=== PATIENT | female | born 1965 | race Caucasian/White ===

== ENCOUNTER 2020-11-01 19:29 | Inpatient (IN) | payer SELFPAY ==
[~2020-11-01] VITALS: Ht 170.2 cm; Wt 72.6 kg
[2020-11-01 19:45] LABS: BASOPHILS % (AUTO) 2.5 % (0.0-2.0); EOSINOPHILS % (AUTO) 1.4 % (0.0-3.0); HEMATOCRIT 47.3 % (37.0-47.0); HEMOGLOBIN 14.6 G/DL (12.0-16.0); LYMPHOCYTES % (AUTO) 10.2 % (20.0-45.0); MEAN CORPUSCULAR VOLUME 89 FL (80-99); MONOCYTES % (AUTO) 9.8 % (1.0-10.0); NEUTROPHILS % (AUTO) 76.1 % (45.0-75.0); PLATELET COUNT 337 K/UL (150-450); RED BLOOD COUNT 5.34 M/UL (4.20-5.40); WHITE BLOOD COUNT 7.7 K/UL (4.8-10.8)
--- NOTE | 2020-11-01 19:45 | NUR ---
ED Nurse Note: Pt brought in by EMS. Pt reports she ate something yesterday, and it got lodged in her esophagus. Pt reports vomiting since this happened and complains of epigastric pain. Pt is able to swallow without difficulty. Pt AAO x4.
[2020-11-01 19:50] LABS: INR 1.2 (0.9-1.1)
[2020-11-01 19:51] LABS: ANION GAP 16 mmol/L (5-15); BLOOD UREA NITROGEN 22 mg/dL (7-18); CALCIUM 9.4 MG/DL (8.5-10.1); CARBON DIOXIDE 20 MMOL/L (21-32); CHLORIDE 107 MMOL/L (98-107); CREATININE 0.5 MG/DL (0.55-1.30); POTASSIUM 4.1 MMOL/L (3.5-5.1); SODIUM 143 MMOL/L (136-145)
[2020-11-01 19:55] LABS: ALANINE AMINOTRANSFERASE 55 U/L (12-78); ALBUMIN 3.9 G/DL (3.4-5.0); ALBUMIN/GLOBULIN RATIO 0.9 (1.0-2.7); ALKALINE PHOSPHATASE 140 U/L (46-116); ASPARTATE AMINO TRANSFERASE 42 U/L (15-37); BILIRUBIN,TOTAL 0.9 MG/DL (0.2-1.0)
--- NOTE | 2020-11-01 20:03 | Emergency Room Report ---
History of Present Illness General Chief Complaint: Abdominal Pain Source: Patient Present Illness HPI 55-year-old female with history of hypothyroidism currently not taking any medication brought in by paramedics due to multiple bouts of emesis that she reports has been happening for the past 23 hours. Reports that started after eating chicken. Patient is actively vomiting. Complains of epigastric pain. Denies any cough or congestion, shortness of breath. Complains of palpitation. Appears to be tachycardic upon arrival. Also complains of nonbloody diarrhea that started around the same time as her nonbloody emesis. Denies headache and dizziness. Denies urinary symptoms. Denies tobacco smoke, drug use, alcohol intake. Allergies: Coded Allergies: No Known Allergies (Unverified , 11/01/20) COVID-19 Screening Contact w/high risk pt: No Experienced COVID-19 symptoms?: No COVID-19 Testing performed MODEL MAKER APPRENTICE: No Patient History Past Medical History: see triage record Past Surgical History: none Pertinent Family History: none Now: No Immunizations: UTD Reviewed Nursing Documentation: PMH: Agreed; PSxH: Agreed Review of Systems All Other Systems: negative except mentioned in HPI Physical Exam Vital Signs Date Time Temp Pulse Resp B/P (MAP) Pulse Ox O2 Delivery O2 Flow Rate FiO2 11/01/20 19:14 98.4 121 20 143/83 (103) 98 Room Air Sp02 EP Interpretation: reviewed, abnormal - tachycardic General Appearance: mild distress Head: normocephalic, atraumatic Eyes: bilateral eye normal inspection, bilateral eye PERRL ENT: hearing grossly normal, normal pharynx, no angioedema, normal voice Neck: no meningismus, no bony tend Respiratory: chest non-tender, normal breath sounds, no rhonchi, no respiratory distress, no retraction, no accessory muscle use Cardiovascular #1: regular rate, rhythm, no edema Cardiovascular #2: 2+ carotid (R), 2+ carotid (L), 2+ radial (R), 2+ radial (L), 2+ dorsalis pedis (R), 2+ dorsalis pedis (L) Gastrointestinal: soft, no organomegaly, no peritonitis, no bruit, non- distended Genitourinary: no CVA tenderness Musculoskeletal: back normal Neurologic: alert, motor strength/tone normal, oriented x3, sensory intact, responsive, speech normal Psychiatric: judgement/insight normal, memory normal, mood/affect normal, no suicidal/homicidal ideation Skin: no rash Lymphatic: no adenopathy Medical Decision Making PA Attestation All my diagnosis and treatment plans were reviewed ad discussed with my supervising physician Dr. Chino Diagnostic Impression: Primary Impression: MEGHAN (acute kidney injury) Additional Impressions: Nausea & vomiting Dehydration Low TSH level ER Course 55-year-old female with history of hypothyroidism currently not taking any medication brought in by paramedics due to multiple bouts of emesis that she reports has been happening for the past 23 hours. Reports that started after eating chicken. Patient is actively vomiting. Complains of epigastric pain. Denies any cough or congestion, shortness of breath. Complains of palpitation. Appears to be tachycardic upon arrival. Also complains of nonbloody diarrhea that started around the same time as her nonbloody emesis. Denies headache and dizziness. Denies urinary symptoms. Denies tobacco smoke, drug use, alcohol intake. Ddx considered but are not limited to: appendicitis, cholecystis, gastritis, gastroenteritis, UTI, pyelonephritis, SBO, diverticulitis, thyroid storm, thyrotoxicosis Vital signs: are WNL, pt. is afebrile H&PE are most consistent with: Dehydration, nausea vomiting, MEGHAN At this time patient denies any diffuse abdominal pain reports that she only has pain she has to vomit she feels is epigastric with radiation to chest. Therefore I do not believe the patient needs any abdominal imaging at this time patient was also nonrigid abdomen. Denies any abdominal surgeries in the past ORDERS: Abdominal pain order set, TSH ED INTERVENTIONS: NS bolus, Pepcid, Zofran, Phenergan Patient reports that she has not taken anything for hypothyroidism in over 3 years she only takes 3 tablets of the medication as she cannot recall what it was 12 years ago and reports that it is constant . patient has not been seen by cocoa bean roaster in the [id number]. Patient was admitted with diagnosis of hyperemesis, hypothyroidism to under supervision of Dr.: Chino pt stable at time of admission EKG Diagnostic Results Rate: tachycardiac Rhythm: other - Slightly tachycardic Other Impression No acute ST changes ASA given to the pt in ED: No Chest X-Ray Diagnostic Results Chest X-Ray Diagnostic Results : Chest X-Ray Ordered: Yes # of Views/Limited/Complete: 1 View Indication: Other EP Interpretation: Yes PA Xray: Interpretation reviewed, by supervising MD, and agrees with findings. Interpretation: no consolidation, no effusion, no pneumothorax Impression: No acute disease Electronically Signed by: Kumar Inman PA-C Last Vital Signs Date Time Temp Pulse Resp B/P (MAP) Pulse Ox O2 Delivery O2 Flow Rate FiO2 11/01/20 19:14 98.4 121 20 143/83 (103) 98 Room Air Condition: Serious Referrals: NOT CHOSEN IPA/,REFERRING (PCP) Additional Instructions: Kumar Harper Nov 01, 2020 20:03
--- NOTE | 2020-11-01 20:25 | NUR ---
ED Nurse Note: Pt reports she is still nauseated and reports she vomited after receiving PO pepcid. Advised provider, new orders pending.
[2020-11-01 20:55] VITALS: BP 143/83
--- NOTE | 2020-11-01 21:18 | NUR ---
ED Nurse Note: Pt requesting something for pain. Provider aware.
[2020-11-01] MEDS ORDERED: Morphine Sulfate 4mg/ml Inj (IV USE ONLY) IVP ONE (21:30)
[2020-11-01 21:46] VITALS: BP 115/47
[2020-11-01] MEDS ORDERED: Propranolol 10mg tab ORAL ONE (22:00)
[2020-11-01] MEDS ORDERED: Propranolol 1mg/ml Inj IVP ONE (22:00)
--- NOTE | 2020-11-01 22:19 | NUR ---
TRANSFER TO FLOOR: Patient transferred to as ordered, per Meredith. Report given to JANE Green. Belongings sent to floor with pt, belongings inventory completed and signed.
[2020-11-01 22:21] LABS: APPEARANCE,URINE CLEAR; BILIRUBIN, URINE NEGATIVE (NEGATIVE); GLUCOSE, URINE (UA) NEGATIVE (NEGATIVE); KETONES,URINE 4+ (NEGATIVE); LEUKOCYTE ESTERASE ,URINE 1+ (NEGATIVE); NITRITE,URINE NEGATIVE (NEGATIVE); PH,URINE 5 (4.5-8.0); PROTEIN,URINE 1+ (NEGATIVE); UROBILINOGEN,URINE NORMAL MG/DL (0.0-1.0)
[2020-11-01 22:23] LABS: COLOR,URINE YELLOW
--- NOTE | 2020-11-01 23:26 | NUR ---
NURSE NOTES: Received patient report from KRYSTLE Olivares RN. Patient is AO x4 awake and able to make needs known. Patient still presents with nausea and complains of pain in abdomen 05/10. Patient connected to tele box. Patient on room air and shows no signs of respiratory distress at the time. IV is intact and patent. There are no signs of erythema, infiltration, or bleeding. Belongings list reviewed and signed by me. Vitals are within range. Patient is ambulatory with steady gait. Dr. Chawla called for admission orders, awaiting call back. Bed is in the lowest position, call light is within reach, side rails up x3. Will continue to monitor.
[2020-11-02] VITALS: BP 122/72
[2020-11-02] MEDS ORDERED: Acetaminophen 500mg (ES) tab ORAL PRN
--- NOTE | 2020-11-02 00:10 | NUR ---
NURSE NOTES: Dr. Chawla gave orders. Said he would not give patient Morphine for pain at the time until we know more about what is causing abdominal pain.
[2020-11-02 04:00] VITALS: BP 123/61
[2020-11-02 07:22] LABS: BASOPHILS % (AUTO) 1.8 % (0.0-2.0); EOSINOPHILS % (AUTO) 4.6 % (0.0-3.0); HEMATOCRIT 38.6 % (37.0-47.0); HEMOGLOBIN 12.1 G/DL (12.0-16.0); LYMPHOCYTES % (AUTO) 21.9 % (20.0-45.0); MEAN CORPUSCULAR VOLUME 91 FL (80-99); MONOCYTES % (AUTO) 13.8 % (1.0-10.0); NEUTROPHILS % (AUTO) 57.9 % (45.0-75.0); PLATELET COUNT 285 K/UL (150-450); RED BLOOD COUNT 4.25 M/UL (4.20-5.40); RED CELL DISTRIBUTION WIDTH 13.3 % (11.6-14.8); WHITE BLOOD COUNT 6.6 K/UL (4.8-10.8)
--- NOTE | 2020-11-02 07:33 | NUR ---
NURSE HAND-OFF REPORT: Important Events on Shift:[Admission] Patient Status: [Full code] Diet: [NPO] Pending Orders: [] Pending Results/Labs:[] Pending MD notification:[] Latest Vital Signs: Temperature 98.2 , Pulse 80 , B/P 123 /61 , Respiratory Rate 18 , O2 SAT 97 , Room Air, O2 Flow Rate . Vital Sign Comment: [] EKG Rhythm: Sinus Rhythm Rhythm change?: N MD Notified?: - MD Response: Latest Kaplan Fall Score: 35 Fall Risk: Medium Risk Safety Measures: Call light Within Reach, Bed Alarm Zone 2, Side Rails Side Rails x2, Bed position Low and Locked. Fall Precautions: Yellow Socks Yellow Gown Patient Fall Education Report given to [Tarah, RN].
--- NOTE | 2020-11-02 07:42 | NUR ---
NURSE NOTES: Received patient in bed awake. No SOB or acute distress. IV lines intact and patent. Maintained on NPO. HOB elevated. Bed locked in low position. Call light within reach. Will continue plan of care.
[2020-11-02 08:00] VITALS: BP 128/62
--- NOTE | 2020-11-02 08:00 | NUR ---
CASE MANAGEMENT:REVIEW 55 YR OLD FEMALE BIBA CC: NAUSEA AND VOMITING BILE. EPIGASTRIC PAIN PMH: THYROID SI: N/V. HYPERTHYROIDISM. MEGHAN. DEHYDRATION 98.5 121 20 143/83 98% ON RA BUN+22 TSH<0.010 IS: IV ZOFRAN IV PEPCID X2 1L NS BOLUS X3 IV PROMETHAZINE IV MORPHINE CXR NPO : TO TELEMETRY
[2020-11-02 08:12] LABS: ANION GAP 15 mmol/L (5-15); BLOOD UREA NITROGEN 17 mg/dL (7-18); CALCIUM 8.8 MG/DL (8.5-10.1); CARBON DIOXIDE 20 MMOL/L (21-32); CHLORIDE 112 MMOL/L (98-107); CREATININE 0.5 MG/DL (0.55-1.30); SODIUM 147 MMOL/L (136-145)
[2020-11-02] MEDS: methIMAzole 10mg tab ORAL SCH ×2 (08:35→17:36)
[2020-11-02 11:50] VITALS: BP 113/54
[2020-11-02] MEDS: Propranolol 10mg tab ORAL SCH ×2 (13:09→21:49)
[2020-11-02 15:34] VITALS: BP 114/56
[2020-11-02] MEDS ORDERED: Barium EZ HD MC PRN (16:30)
[2020-11-02] MEDS ORDERED: Barium EZ Gas II granules MC PRN (16:30)
[2020-11-02] MEDS ORDERED: Varibar Thin Liquid powder 148gm MC PRN (16:30)
--- NOTE | 2020-11-02 16:57 | NUR ---
NURSE NOTES: Dr Chawla informed of episode of paroxysmal SVT at 152 bpm, left message, awaiting response. Patient asymptomatic, on the phone talking and laughing, no complaints. HR went down to 96. Addendum: 11/02/20 at 1843 by Tarah Hermosillo RN NURSE NOTES: Paroxysmal SVT relayed to Dr Hodges, no new orders.
[2020-11-02] MEDS: Pantoprazole Inj IVP SCH (17:36)
[2020-11-02] MEDS: Metoclopramide 10mg/2ml Inj IVP PRN (17:36)
--- NOTE | 2020-11-02 18:06 | Diagnostic Imaging Report ---
Indication: Chest pain Technique: One view of the chest Comparison: none Findings: Lungs and pleural spaces are clear. Heart size is normal. Impression: No acute process
--- NOTE | 2020-11-02 19:15 | NUR ---
NURSE NOTES: Receive a report from JANE Rascon. Round is made. Pt is asleep but easily aroused. Awake and alert. No nausea/vomiting noted. On NPO. Will have esophagogram tomorrow. No dizziness noted. Call light within reach. Will continue to monitor.
--- NOTE | 2020-11-02 19:53 | NUR ---
NURSE HAND-OFF REPORT: Important Events on Shift: with nausea and vomiting. With an episode of paroxysmal SVT, Dr Hodges aware, no new orders. Patient Status: alert Diet: npo except meds and ice chips Pending Orders: xray of the esophagus Pending Results/Labs: Pending MD notification: Latest Vital Signs: Temperature 97.9 , Pulse 88 , B/P 114 /56 , Respiratory Rate 18 , O2 SAT 98 , Room Air, O2 Flow Rate . Vital Sign Comment: EKG Rhythm: Sinus Rhythm Rhythm change?: N MD Notified?: - MD Response: Latest Kaplan Fall Score: 35 Fall Risk: Medium Risk Safety Measures: Call light Within Reach, Bed Alarm Zone 2, Side Rails Side Rails x2, Bed position Low and Locked. Fall Precautions: Yellow Socks Report given to Go RN
[2020-11-02 20:00] VITALS: BP 127/56
--- NOTE | 2020-11-02 20:15 | NUR ---
NURSE NOTES: Pt requests medication for epigastric soreness. Spoke to Dr. Cardoso but will be held until test tomorrow. Pt made aware,
--- NOTE | 2020-11-02 23:05 | General Progress Note ---
Subjective Allergies: Coded Allergies: No Known Allergies (Unverified , 11/01/20) Objective Last 24 Hour Vital Signs Date Time Temp Pulse Resp B/P (MAP) Pulse Ox O2 Delivery O2 Flow Rate FiO2 11/02/20 21:49 92 127/56 11/02/20 21:00 Room Air 11/02/20 20:00 98.1 89 18 127/56 (79) 98 11/02/20 20:00 89 11/02/20 16:00 88 11/02/20 15:34 97.9 89 18 114/56 (75) 98 11/02/20 13:09 87 113/54 11/02/20 12:00 94 11/02/20 11:50 98.2 87 18 113/54 (73) 98 11/02/20 09:00 Room Air 11/02/20 08:00 97.7 91 18 128/62 (84) 98 11/02/20 08:00 93 11/02/20 04:00 90 11/02/20 04:00 98.2 80 18 123/61 (81) 97 11/02/20 00:49 Room Air 11/02/20 00:00 101 11/02/20 00:00 98.4 90 18 122/72 (89) 98 Intake and Output 11/01/20 11/02/20 19:00 07:00 # Voids 2 Laboratory Tests 11/02/20 06:34: White Blood Count 6.6, Red Blood Count 4.25, Hemoglobin 12.1, Hematocrit 38.6, Mean Corpuscular Volume 91, Mean Corpuscular Hemoglobin 28.5, Mean Corpuscular Hemoglobin Concent 31.4L, Red Cell Distribution Width 13.3, Platelet Count 285, Mean Platelet Volume 6.9, Neutrophils (%) (Auto) 57.9, Lymphocytes (%) (Auto) 21.9, Monocytes (%) (Auto) 13.8H, Eosinophils (%) (Auto) 4.6H, Basophils (%) (Auto) 1.8, Sodium Level 147H, Potassium Level 4.0, Chloride Level 112H, Carbon Dioxide Level 20L, Anion Gap 15, Blood Urea Nitrogen 17, Creatinine 0.5L, Estimat Glomerular Filtration Rate > 60, Glucose Level 78, Calcium Level 8.8, T hyroid Stimulating Hormone (TSH) < 0.010L 11/02/20 16:10: Urine Opiates Screen Negative, Urine Barbiturates Screen Negative, Phencyclidine (PCP) Screen Negative, Urine Amphetamines Screen Negative, Urine Benzodiazepines Screen Negative, Urine Cocaine Screen Negative, Urine Marijuana (THC) Screen Negative Height (Feet): 5 Height (Inches): 7.00 Weight (Pounds): 160 Assessment/Plan Assessment/Plan: Assessment - Dysphagia - N/V - hyperthyroid disorder Recommendations - Barium swallow / xray - PPI Thank you Rena Nguyen MD Nov 02, 2020 23:05
--- NOTE | 2020-11-02 23:44 | History and Physical Report ---
DATE OF ADMISSION: 11/01/2020 The patient has a history of hypothyroidism, currently not taking medication. The patient says that the medications made her feel sick, so she stopped taking the thyroid medications for approximately 2 years. The patient said that all of this started after eating chicken. The patient started having recurrent epigastric pain and vomiting. Denies shortness of breath. Denies nausea, vomiting, or diarrhea. Denies fever or chills. Denies cough. Denies headache. The patient says that she has been vomiting for 4 days nonstop. The patient also has heartburn. The patient is admitted for uncontrollable hyperemesis. Denies headache. PAST MEDICAL HISTORY: Has history of hypothyroidism, history of GERD. PAST SURGICAL HISTORY: , hysterectomy. FAMILY HISTORY: Noncontributory. MEDICATIONS: None. SOCIAL HISTORY: Denies history of alcohol abuse. Denies history of drug abuse. Does smoke. ALLERGIES: No known allergies. REVIEW OF SYSTEMS: HEENT: Denies headache. RESPIRATORY: Denies shortness of breath. Denies cough. CARDIOVASCULAR: Denies chest pain. GASTROINTESTINAL: Reports vomiting x4 days. Epigastric pain for 4 days. Nonblood watery stool. EXTREMITIES: Denies pain. CENTRAL NERVOUS SYSTEM: Denies change in speech pattern. Denies headache. PHYSICAL EXAMINATION: VITAL SIGNS: Temperature is 98.2, pulse 87, blood pressure is 113/64. HEENT: PERRLA. NECK: Supple. No lymphadenopathy. CHEST: Clear to auscultation. CARDIOVASCULAR: Regular rate and rhythm. No murmurs or extra sounds. GASTROINTESTINAL: Soft. Epigastric tenderness. No rebound. Abdomen soft. No organomegaly. EXTREMITIES: No edema. Moves all four extremities. Reflexes equal on both sides. LABORATORY DATA: WBC of 7.7, hemoglobin 14.6, platelets of 337. Sodium 143, potassium 4.1, BUN of 22, creatinine 0.5, glucose of 127, AST of 42, ALT 55, alk phos of 140. TSH is 0.01. ASSESSMENT/PLAN: Hypothyroidism, hyperemesis, abdominal pain, and one episode of SVT. Unable to keep food down. Admitted for possible dehydration. I have consulted Dr. Elam, Dr. Emmanuel, Dr. Spicer, Dr. Hodges to help with the management of the above-mentioned abnormalities and findings. Rain Chawla M.D. DR: JESUS ALBERTO JOB#: [id number] CC:
[2020-11-03] VITALS: BP 136/56
[2020-11-03] MEDS: Metoclopramide 10mg/2ml Inj IVP PRN (01:25)
--- NOTE | 2020-11-03 01:25 | NUR ---
NURSE NOTES: Pt is feeling epigastric soreness. On NPO at this time. Given prn medication-Reglan IVS. Will continue to monitor.
--- NOTE | 2020-11-03 02:24 | Cardiology Report ---
APPROVED REPORT EKG Measurement Heart [id number] <Conclusion> Sinus tachycardia Possible Left atrial enlargement Borderline ECG
[2020-11-03 04:00] VITALS: BP 129/60
[2020-11-03] MEDS: Propranolol 10mg tab ORAL SCH ×2 (06:00→15:01)
--- NOTE | 2020-11-03 06:37 | NUR ---
NURSE HAND-OFF REPORT: Important Events on Shift: No nausea/vomiting except epigastric soreness. Given Reglan IVS 1x. Planning on X-ray esophagus. Patient Status: [stable] Diet: [npo] Pending Orders: [] Pending Results/Labs:[] Pending MD notification:[] Latest Vital Signs: Temperature 97.9 , Pulse 85 , B/P 129 /60 , Respiratory Rate 18 , O2 SAT 98 , Room Air, O2 Flow Rate . Vital Sign Comment: [] EKG Rhythm: Sinus Rhythm Rhythm change?: N MD Notified?: - MD Response: Latest Kaplan Fall Score: 35 Fall Risk: Medium Risk Safety Measures: Call light Within Reach, Bed Alarm Zone 2, Side Rails Side Rails x2, Bed position Low and Locked. Fall Precautions: Door Sign Patient Fall Education
--- NOTE | 2020-11-03 07:20 | NUR ---
NURSE NOTES: Given report to JANE Morales. Round is made.
--- NOTE | 2020-11-03 07:25 | NUR ---
NURSE NOTES: Received report from Gho/RN, Observed patient asleep, Lying semi-retana's, Resting comfortably. On room air, No acute distress/SOB noted. IV on left wrist and right wrist patent and intact. D5W running at 50cc/hr. Bed in low position and locked, Call light within reach. Encouraged to use call light when needed. Will continue plan of care.
[2020-11-03 08:00] VITALS: BP 110/55
[2020-11-03] MEDS: Pantoprazole Inj IVP SCH (09:20)
[2020-11-03] MEDS: methIMAzole 10mg tab ORAL SCH (09:20)
[2020-11-03 10:18] LABS: BASOPHILS % (AUTO) 1.2 % (0.0-2.0); EOSINOPHILS % (AUTO) 2.3 % (0.0-3.0); HEMATOCRIT 41.6 % (37.0-47.0); LYMPHOCYTES % (AUTO) 13.4 % (20.0-45.0); MEAN CORPUSCULAR VOLUME 90 FL (80-99); MONOCYTES % (AUTO) 8.5 % (1.0-10.0); NEUTROPHILS % (AUTO) 74.5 % (45.0-75.0); PLATELET COUNT 316 K/UL (150-450); WHITE BLOOD COUNT 8.5 K/UL (4.8-10.8)
[2020-11-03 10:47] LABS: ALANINE AMINOTRANSFERASE 88 U/L (12-78); ALBUMIN 3.4 G/DL (3.4-5.0); ALBUMIN/GLOBULIN RATIO 0.8 (1.0-2.7); ALKALINE PHOSPHATASE 117 U/L (46-116); ANION GAP 11 mmol/L (5-15); ASPARTATE AMINO TRANSFERASE 72 U/L (15-37); BILIRUBIN,TOTAL 0.8 MG/DL (0.2-1.0); BLOOD UREA NITROGEN 13 mg/dL (7-18); CALCIUM 9.1 MG/DL (8.5-10.1); CARBON DIOXIDE 24 MMOL/L (21-32); CHLORIDE 106 MMOL/L (98-107); CHOLESTEROL 198 MG/DL (< 200); CREATININE 0.5 MG/DL (0.55-1.30); HDL CHOLESTEROL 57 MG/DL (40-60); PHOSPHORUS 3.9 MG/DL (2.5-4.9); POTASSIUM 3.6 MMOL/L (3.5-5.1); SODIUM 141 MMOL/L (136-145); TRIGLYCERIDES 126 MG/DL (30-150)
--- NOTE | 2020-11-03 10:59 | Consultation ---
DATE OF CONSULTATION: 11/02/2020 GASTROENTEROLOGY CONSULTATION CONSULTING PHYSICIAN: Rena Spicer MD CHIEF COMPLAINT: I was asked to see this patient by Dr. Oh for evaluation of swallowing difficulty. HISTORY OF PRESENT ILLNESS: Patient is a 55-year-old woman, who comes with a 2 to 3-day history of difficulty swallowing. Patient stated same thing happened to her about 3 years ago and it resolved. Since then, she had no esophageal symptoms, although she does admit that she has been chewing her food very carefully as well as makes sure the food passes. Patient denies any reflux symptoms, but over the last 2 days she has had vomiting episodes. The patient describes sensation of dysphagia chest level. She has not lost any weight. She has not had any endoscopy or colonoscopy. PAST MEDICAL HISTORY: History of hyperthyroid disorder. The patient is on Tapazole. FAMILY HISTORY: Positive for bladder cancer in mother. SOCIAL HISTORY: Patient smokes cigarettes, but she stopped this 3 months ago. She does not drink alcohol. She is and she has children. PAST SURGICAL HISTORY: Status post x2, status post hysterectomy. REVIEW OF SYSTEMS: Otherwise negative. PHYSICAL EXAMINATION: GENERAL: A thin woman, seen in her room, in no distress. HEENT: Normocephalic and atraumatic. Sclerae anicteric. Oropharynx clear. NECK: Supple. CHEST: Clear to auscultation. CARDIOVASCULAR: Revealed a regular rate. ABDOMEN: Soft. EXTREMITIES: Revealed no edema. LABORATORY DATA: Noted. ASSESSMENT: This patient presents with 2 to 3-day history of severe nausea and vomiting, which is somewhat acute. The patient had a similar episode in about 3 years ago. In between these attacks, she has been chewing very carefully. I suspect that she has somewhat esophageal ring that has been causing the obstruction due to occlusion of food. The patient will have an esophagram to evaluate the . Endoscopy can be done thereafter to repair any target the anomaly. RECOMMENDATIONS: Per above discussion and per orders written in the chart. Thank you for asking me to participate in the care of this patient. Rena Spicer M.D. DR: AUGUSTUS JOB#: [id number] CC:
[2020-11-03 12:00] VITALS: BP 131/53
--- NOTE | 2020-11-03 12:35 | NUR ---
NURSE NOTES: Patient refused Esophagus x-ray, Notified Dr. Spicer. also received order for diet and carried out.
--- NOTE | 2020-11-03 14:04 | Cardiac Electrophysiology PN ---
Subjective Subjective [id number] Objective Last 24 Hour Vital Signs Date Time Temp Pulse Resp B/P (MAP) Pulse Ox O2 Delivery O2 Flow Rate FiO2 11/03/20 12:00 98.1 84 20 131/53 (79) 98 11/03/20 09:00 Room Air 11/03/20 08:00 98.1 87 20 110/55 (73) 96 11/03/20 08:00 88 11/03/20 04:00 88 11/03/20 04:00 97.9 85 18 129/60 (83) 98 11/03/20 00:00 97.9 83 18 136/56 (82) 98 11/03/20 00:00 83 11/02/20 21:49 92 127/56 11/02/20 21:00 Room Air 11/02/20 20:00 98.1 89 18 127/56 (79) 98 11/02/20 20:00 89 11/02/20 16:00 88 11/02/20 15:34 97.9 89 18 114/56 (75) 98 Intake and Output 11/02/20 11/03/20 19:00 07:00 Intake Total 850 ml Output Total 2340 ml Balance -1490 ml Intake IV Total 550 ml Other 300 ml Output Other 2340 ml # Voids 2 # Bowel Movements 1 Laboratory Tests Test 11/02/20 16:10 11/03/20 09:39 Urine Opiates Screen Negative (NEGATIVE) Urine Barbiturates Screen Negative (NEGATIVE) Phencyclidine (PCP) Screen Negative (NEGATIVE) Urine Amphetamines Screen Negative (NEGATIVE) Urine Benzodiazepines Screen Negative (NEGATIVE) Urine Cocaine Screen Negative (NEGATIVE) Urine Marijuana (THC) Screen Negative (NEGATIVE) White Blood Count 8.5 K/UL (4.8-10.8) Red Blood Count 4.60 M/UL (4.20-5.40) Hemoglobin 13.0 G/DL (12.0-16.0) Hematocrit 41.6 % (37.0-47.0) Mean Corpuscular Volume 90 FL (80-99) Mean Corpuscular Hemoglobin 28.3 PG (27.0-31.0) Mean Corpuscular Hemoglobin Concent 31.3 G/DL (32.0-36.0) L Red Cell Distribution Width 13.0 % (11.6-14.8) Platelet Count 316 K/UL (150-450) Mean Platelet Volume 7.2 FL (6.5-10.1) Neutrophils (%) (Auto) 74.5 % (45.0-75.0) Lymphocytes (%) (Auto) 13.4 % (20.0-45.0) L Monocytes (%) (Auto) 8.5 % (1.0-10.0) Eosinophils (%) (Auto) 2.3 % (0.0-3.0) Basophils (%) (Auto) 1.2 % (0.0-2.0) Sodium Level 141 MMOL/L (136-145) Potassium Level 3.6 MMOL/L (3.5-5.1) Chloride Level 106 MMOL/L (98-107) Carbon Dioxide Level 24 MMOL/L (21-32) Anion Gap 11 mmol/L (5-15) Blood Urea Nitrogen 13 mg/dL (7-18) Creatinine 0.5 MG/DL (0.55-1.30) L Estimat Glomerular Filtration Rate > 60 mL/min (>60) Glucose Level 151 MG/DL (74-106) H Uric Acid 7.3 MG/DL (2.6-7.2) H Calcium Level 9.1 MG/DL (8.5-10.1) Phosphorus Level 3.9 MG/DL (2.5-4.9) Magnesium Level 1.7 MG/DL (1.8-2.4) L Total Bilirubin 0.8 MG/DL (0.2-1.0) Aspartate Amino Transf (AST/SGOT) 72 U/L (15-37) H Alanine Aminotransferase (ALT/SGPT) 88 U/L (12-78) H Alkaline Phosphatase 117 U/L (46-116) H Total Protein 7.6 G/DL (6.4-8.2) Albumin 3.4 G/DL (3.4-5.0) Globulin 4.2 g/dL Albumin/Globulin Ratio 0.8 (1.0-2.7) L Triglycerides Level 126 MG/DL (30-150) Cholesterol Level 198 MG/DL (< 200) LDL Cholesterol 115 mg/dL (<100) H HDL Cholesterol 57 MG/DL (40-60) Cholesterol/HDL Ratio 3.5 (3.3-4.4) Thyroid Stimulating Hormone (TSH) < 0.010 uiU/mL (0.358-3.740) Maxim Hodges MD Nov 03, 2020 14:04
--- NOTE | 2020-11-03 14:26 | NUR ---
RADIOLOGY DEPT., ESOPHAGRAM HAS BEEN CANCELLED, DR SAAVEDRA WILL BE NOTIFIED BY NURSE NIELSEN. PATIENT EXPRESSED "THAT SHE FEELS EXAM IS NO LONGER NECESSARY", PER NURSE NIELSEN.- KALA
[2020-11-03 15:01] VITALS: BP 131/53
--- NOTE | 2020-11-03 15:18 | NUR ---
NURSE NOTES: RN went to the room to give medications and to fix environmental monitoring technician, Patient was up getting ready to leave and removed environmental monitoring technician off. Asked what's going on, patient stated " I have three teenagers at home, I need to go to them, I feel much better and I already called [employer]". Tried to convince patient to wait for discharge orders, but patient doesn't want to stay any longer. RN removed IV, no bleeding at the site, signed out AMA form and belonging list. Notified Dr. Chawla.
[2020-11-03] MEDS ORDERED: 1/2 NS 1000ml IV ONE (15:42)
--- NOTE | 2020-11-03 16:29 | Consultation ---
DATE OF CONSULTATION: 11/03/2020 CARDIOLOGY CONSULTATION CONSULTING PHYSICIAN: Maxim Hodges MD REFERRING PHYSICIAN: Rain Chawla MD REASON FOR CONSULTATION: Tachycardia. HISTORY OF PRESENT ILLNESS: The patient is a 55-year-old lady with history of hyperthyroidism on Tapazole, who presents to the emergency room for difficulty swallowing. The same patient apparently had similar symptoms about 3 years ago that was resolved. The patient states that she was not chewing her food very carefully. The patient was also noted to be tachycardic and was admitted and a Cardiology consultation was obtained for further evaluation. REVIEW OF SYSTEMS: Negative other than what is mentioned in the history of present illness. PAST MEDICAL HISTORY: Hyperthyroidism, on Tapazole. FAMILY HISTORY: Bladder cancer in the mother. SOCIAL HISTORY: Smokes cigarettes. Does not drink alcohol. She is , with children. PAST SURGICAL HISTORY: Includes hysterectomy. PHYSICAL EXAMINATION: VITAL SIGNS: Show blood pressure of 131/52, pulse is 84, respirations 18, and she is afebrile. HEAD AND NECK: Showed no JVD. LUNGS: Clear. CARDIOVASCULAR: Shows regular S1 and S2 with no gallop or murmur. ABDOMEN: Soft. EXTREMITIES: No pitting edema. LABORATORY DATA: Labs show white count 8.5, hematocrit 13, hematocrit 41, and platelet count of 316. Sodium is 141, potassium 3.6, BUN of 13, creatinine 0.5. First troponin is negative. TSH is less than zero. ASSESSMENT AND PLAN: 1. Tachycardia. It was likely due to stress of choking. Currently, the patient is in normal sinus rhythm. The patient does not have any chest pain. Her EKG shows sinus rhythm with sinus tachycardia with the left atrial enlargement. We will get an echocardiogram for further evaluation and management. 2. Severe nausea and vomiting, similar to about 3 years ago, admitted due to esophageal ring. Endoscopy per Dr. Spicer is pending. Thank you very much for allowing me to participate in the care of this patient. Please do not hesitate to contact me for any questions regarding my evaluation. It is also mentioned the patient has severe hyperthyroidism on Tapazole with undetectable TSH level. Maxim Hodges M.D. DR: Francine JOB#: [id number] CC:
--- NOTE | 2020-11-04 16:59 | Discharge Summary ---
Discharge Summary Discharge Summary _ DATE OF ADMISSION: 11/01/2020 DATE OF DISCHARGE: 11/03/2020 Patient left AGAINST MEDICAL ADVICE REASON FOR ADMISSION: 55 years old female with past medical history of thyroid disease , not taking any medications, was brought by paramedics due to multiply bouts of nonbloody emesis for the past 23 hours. Patient reported that it started after she ate chicken. Patient was actively vomiting. Patient also reported nonbloody diarrhea , which started at the same time as nonbloody emesis. She also complained of epigastric pain. Similar symptoms occurred about 3 years ago with food intake as well. She denied cough, congestion or shortness of breath. No chest pain. Upon arrival she was tachycardic and complained of palpitations . No fevers. No headache or dizziness. No urinary symptoms. Chest x-ray revealed no acute process. Laboratory work-up revealed no leukocytosis , stable hemoglobin, hematocrit and platelet count. BUN 22, creatinine 0.5. AST 42 , ALT 55 , lipase 130. TSH less than 0.010 Troponin negative . EKG revealed sinus tachycardia no acute ischemic changes Patient received a bolus of normal saline , Pepcid, Zofran, Phenergan and admitted for further management. CONSULTANTS: ingot passer Dr. Torres GI specialist Dr. Spicer [facility] COURSE: Patient admitted to telemetry floor. Cardiology and GI specialist consulted. Echocardiogram revealed preserved ejection fraction 60%. No evidence of left ventricular hypertrophy. Grade 2 diastolic dysfunction. Right ventricular systolic pressure of 60 consistent with severe pulmonary hypertension. Patient started on Inderal . Free T4 high -3.26 and free T3 also high -8.3. Patient started on methimazole . Sinus tachycardia resolved: monitor showed normal sinus rhythm. GI specialist followed. Patient reported similar episode 3 years ag. GI specialist suspected some occlusion at the esophageal ring that may cause obstruction , and esophagram was ordered along with plan for endoscopy to check and repair any target abnormality. Patient started on PPI. Antiemetic were on board as needed. Aspiration precaution maintained. The next morning esophagram was canceled , as patient stated that she felt exam was no longer necessary. Patient subsequently decided to leave AGAINST MEDICAL ADVICE. The risks and consequences of signing AGAINST MEDICAL ADVICE were discussed with patient in detail. Patient verbalized understanding, nevertheless signed AMA form and left. FINAL DIAGNOSES: Severe hyperthyroidism with undetectable TSH level Tachycardia- resolved Severe nausea and vomiting Dehydration Dysphagia I have been assigned to dictate discharge summary for this account. I was not involved in the patient's management. Neena Ramirez NP Nov 04, 2020 16:59
--- NOTE | 2020-11-05 12:46 | Cardiology Report ---
APPROVED REPORT EXAM: Two-dimensional and M-mode echocardiogram with Doppler and color Doppler. INDICATION Tachycardia M-Mode DIMENSIONS IVSd1.0 (0.7-1.1cm)Left Atrium (MM)3.3 (1.6-4.0cm) LVDd5.5 (3.5-5.6cm)Aortic Root2.8 (2.0-3.7cm) PWd0.9 (0.7-1.1cm)Aortic Cusp Exc.2.0 (1.5-2.0cm) IVSs1.3 cmEPSS1.0 (>1.0cm) LVDs3.5 (2.5-4.0cm) PWs1.5 cm <Conclusion> Normal left ventricular chamber size, systolic function and wall motion. Left ventricular ejection fraction estimated to be 60%. No evidence of left ventricular hypertrophy. Anterior Echo-free space, may be due to pericardial fat or effusion. Bi-atrial sizes are within normal limits. Right ventricular chamber size is mildly enlarged. Focal aortic valve sclerosis with adequate cusp excursion. Thickened mitral valve leaflets with normal excursion. Mitral annulus and aortic root calcification. Normal pulmonic valve structure. Normal tricuspid valve structure. IVC at normal size with physiological collapsing with respiration. A color flow and spectral Doppler study was performed and revealed: Mild aortic insufficiency. Moderate to severe mitral regurgitation. Mitral inflow velocities indicates possible pseudo normalization pattern implying significant left ventricular diastolic dysfunction (Grade ll). Moderate tricuspid regurgitation. Tricuspid systolic velocities suggests peak right ventricular systolic pressure of 60 mmHg, consistent with severe pulmonary hypertension. Trace pulmonic regurgitation present.
== END 2020-11-03 15:43 | disposition left against medical advice (07) | DRG 392 ==
LOC: EDBD 19:29 → EMR 19:54 → 2E 21:38 → EDBEDREQ 21:54
DX: R13.10 Dysphagia, unspecified (principal); R00.0 Tachycardia, unspecified; E05.90 Thyrotoxicosis, unspecified without thyrotoxic crisis or storm; E86.0 Dehydration; K21.9 Gastro-esophageal reflux disease without esophagitis; I27.20 Pulmonary hypertension, unspecified; Z87.891 Personal history of nicotine dependence; Z91.14 Patient's other noncompliance with medication regimen
CPT/HCPCS: 36415; 71045; 80048; 80053; 80061; 80307; 81003; 83690; 83735; 84100; 84439; 84443; 84481; 84484; 84550; 85025; 85610; 85730; 93005; 93306; 96361; 96374; 96375; 99285; J2405; J2765; J7030